=== PATIENT | male | born 1955 | race Caucasian/White ===

== ENCOUNTER 2022-04-19 23:04 | Emergency (ER) | payer MEDICARE ==
[~2022-04-19] VITALS: Ht 190.5 cm; Wt 123.8 kg
--- NOTE | 2022-04-19 23:15 | NUR ---
BIBSELF C/O LAC TO LEFT TOE 4TH DIGIT AROUND 330PM + BLOOD THINNERS. PATIENT ALERT AND ORIENTED X4. AMBULATORY WITH NON LABORED BREATHING IN BED 10 SEEN BY MD AT BEDSIDE
[2022-04-19] MEDS ORDERED: TDAP [DIPH/PERTUSSIS/TET] 0.5 ML VIAL IM ONE (23:16)
--- NOTE | 2022-04-19 23:21 | NUR ---
MICHAEL WHITE AT BEDSIDE PERFORMING ASEPTIC CLEANING TECHNIQUES TO THE OPEN LACERATION OF THE RIGHT FOURTH TOE ALSO KNOWN THE "RING TOE" Addendum: 04/19/22 at 0163 by LINDSEY GONZALEZ LUTZ THE *FOURTH DIGIT TOE*
--- NOTE | 2022-04-19 23:25 | NUR ---
THE RN STUDENTS OF [facility] AT BEDSIDE ASSISTING AND LEARNING THE ASEPTIC TECHNIQUES OF PROPER WOUND CARE.
[2022-04-19] MEDS ORDERED: GELATIN SPONGE,ABSORBABLE 1 SPONGE SPONGE TP ONE (23:26)
--- NOTE | 2022-04-19 23:26 | NUR ---
RONY MULLER PROVIDING THE PROPER BANDAGES AND GUAZES NEEDED FOR THE ASEPTIC WOUND CARE CLEANING TO MICHAEL WHITE SHE CAREFULLY AND ASEPTICALLY CLEANS THE WOUND IN BED NUMBER TEN.
[2022-04-19] MEDS: TDAP [DIPH/PERTUSSIS/TET] 0.5 ML VIAL IM ONE (23:28)
--- NOTE | 2022-04-19 23:32 | NUR ---
DR. MARLA MONGE AT PT'S BEDSIDE TO ASSESS RIGHT 4TH DIGIT
--- NOTE | 2022-04-20 00:16 | NUR ---
Note dylon in EDM - 04/20/22 at 0017 by NAHUM Patient discharged to home in stable condition. Written and verbal after care instructions given. Patient verbalizes understanding of instruction. IV removed. Catheter intact and site benign. Pressure and 4x4 applied to site. No bleeding noted. PT ambulatory with a steady gait
--- NOTE | 2022-04-20 00:17 | NUR ---
Patient discharged to home in stable condition. Written and verbal after care instructions given. Patient verbalizes understanding of instruction. PT ambulatory with a steady gait
[2022-04-20 00:24] VITALS: BP 136/85
[2022-04-20] MEDS ORDERED: GELATIN SPONGE,ABSORBABLE 1 SPONGE SPONGE TP ONE (04:32)
== END 2022-04-20 00:25 | disposition home or self-care (01) ==
LOC: ER 23:06
DX: S91.204A Unspecified open wound of right lesser toe(s) with damage to nail, initial encounter (principal); I48.91 Unspecified atrial fibrillation; X58.XXXA Exposure to other specified factors, initial encounter; Y93.89 Activity, other specified; Y92.89 Other specified places as the place of occurrence of the external cause; Y99.8 Other external cause status
CPT/HCPCS: 99283; 90471; 90715; A6403